=== PATIENT | male | born 1960 | race Caucasian/White ===

== ENCOUNTER 2017-12-29 09:56 | Emergency (ER) | payer MEDICAID ==
[2017-12-29] MEDS ORDERED: SODIUM CHLORIDE 0.9% (FLUSH) 10 ML SYG IV PRN (10:06)
[2017-12-29] MEDS ORDERED: IPRATROPIUM/ALBUTEROL 3 ML VIAL INH ONE (10:06)
[2017-12-29] MEDS ORDERED: MAGNESIUM SULFATE PREMIX 2GM 2 GM in PREMIX BAG 1 BAG IVPB ONE (10:07)
[2017-12-29] MEDS ORDERED: methylPREDNISolone SODIUM SUC 125 MG/2 ML VIAL IV ONE (10:07)
[2017-12-29] MEDS ORDERED: IPRATROPIUM/ALBUTEROL 3 ML VIAL NEB ONE ×2 (10:08→10:41)
--- NOTE | 2017-12-29 10:10 | ED.PDOC ---
History of Present Illness - General Chief Complaint: Respiratory Problem Stated Complaint: SOB, cough Time Seen by Provider: 12/29/17 10:04 Source: patient Exam Limitations: no limitations - History of Present Illness Initial Comments: PT REPORTS 2 WEEK HISTORY OF SOB SECONDARY TO ASTHMA AND COPD. PT REPORTS BEING DISCHARGED FROM THE HOSPITAL YESTERDAY. PT STATES HE HAS DONE APPROXIMATELY 15 NEB TREATMENTS AT HOME SINCE BEING DISCHARGED AND CONTINUES TO BE SHORT OF BREATH. Timing/Duration: getting worse Severity: severe Possible Cause: chronic episodes Improving Factors: immobilization Worsening Factors: movement Associated Symptoms: cough, wheezing Allergies/Adverse Reactions: Allergies Penicillins Allergy (Verified 12/29/17 10:17) Home Medications: Ambulatory Orders Ipratropium/Albuterol [Duoneb] 3 ml NEB Q6H PRN 12/29/17 Metoprolol Succinate [Metoprolol Succinate ER] 25 mg PO DAILY 12/29/17 Review of Systems - Review of Systems Constitutional: Denies: chills, fever EENTM: Denies: nose congestion, throat pain Respiratory: States: cough, short of breath Cardiology: Denies: chest pain, palpitations Gastrointestinal/Abdominal: Denies: diarrhea, nausea, vomiting Genitourinary: Denies: dysuria, frequency Musculoskeletal: Denies: joint pain, joint swelling Skin: Denies: dryness, lesions Neurological: Denies: headache, paresthesia Endocrine: States: no symptoms reported Hematologic/Lymphatic: States: no symptoms reported Family Medical History - Family History Father Family History: Unknown Living Status: Unknown Hx Family;Other: Does not know his father. Sister has asthma Physical Exam - Physical Exam General Appearance: Alert, Obvious distress, Well Groomed, Well Hydrated Eyes, Ears, Nose, Throat Exam: normal ENT inspection Neck: full range of motion, supple, normal inspection Respiratory: respiratory distress, accessory muscle use, wheezing Cardiovascular/Chest: no edema, no murmur, tachycardia Gastrointestinal/Abdominal: non tender, soft Neurologic: alert, normal mood/affect, oriented x 3 Skin Exam: normal color, warm/dry Lymphatic: no adenopathy Progress - Progress Progress: 12/29/17 11:51 PT APPEARS TO BE RESTING MORE COMFORTABLY AFTER DUONEB X 3, IV MAGNESIUM, AND IV SOLU MEDROL. IMPROVED AIR MOVEMENT, LESS TACHYPNEIC, SIGNIFICANT IMPROVEMENT IN WHEEZING. ONLY A FAINT EXPIRATORY WHEEZE AUSCULTATED. SPO2 95% ON RA. PT REFUSING TO KEEP O2 ON. 12/29/17 13:45 PT CONTINUES TO REST COMFORTABLY, HR NOW 126 WITH SBP OF 107 AFTER 1L NS. LUNGS CTA ON EXAM. LABS HEMOLYZED. PT REFUSES FURTHER ATTEMPTS TO DRAW BLOOD. 12/29/17 14:55 PT HAD AN EPISODE OF SYNCOPE AFTER COUGHING VIGOROUSLY, BP FOUND TO BE 81 SYSTOLIC AFTER EPISODE. ADDITIONAL FLUIDS ORDERED. PT REPORTS HE HAS BEEN HAVING FREQUENT EPISODES LIKE THIS WHILE AT HOME. EKG REPEATED. PT AGREES TO LET US ATTEMPT FURTHER IV ACCESS AND BLOOD DRAW. PT REQUESTING ADDITIONAL NEB TREATMENT. PT HAS WHEEZE ON EXAM. CONTINUOUS NEB ORDERED. 12/29/17 15:33 CASE FURTHER DISCUSSED WITH NANCY LEDBETTER NP. PROVIDED UPDATE ON RECENT SYNCOPAL EPISODE AND NEED FOR ADDITIONAL NEB TREATMENTS. I QUESTIONED WHY PT WAS STILL IN THE ED. FLOOR NURSING STAFF DOES NOT FEEL COMFORTABLE KEEPING PT AT THIS FACILITY, THEREFORE ARRANGEMENTS WILL BE MADE FOR TRANSFER. PT TOLERATING CONTINUOUS NEB AND BP 122/90 IMPROVED WITH FLUIDS. - Results/Orders Results/Orders: Laboratory Tests 12/29/17 12/29/17 12/29/17 10:25 11:00 11:00 WBC Cancelled RBC Cancelled Hgb Cancelled Hct Cancelled MCV Cancelled MCH Cancelled MCHC Cancelled RDW Cancelled Plt Count Cancelled MPV Cancelled Absolute Neuts (auto) Cancelled Absolute Lymphs (auto) Cancelled Absolute Monos (auto) Cancelled Absolute Eos (auto) Cancelled Absolute Basos (auto) Cancelled Neutrophils % Cancelled Lymphocytes % Cancelled Monocytes % Cancelled Eosinophils % Cancelled Basophils % Cancelled Differential Comment Cancelled RBC Morphology Cancelled D-Dimer, Quantitative Cancelled pCO2 41 pO2 40 L* HCO3 24.9 ABG pH 7.400 ABG O2 Saturation 80.5 L ABG Base Excess 0.6 ABG Deoxyhemoglobin 19.1 H Oxyhemoglobin % 78.8 L Carboxyhemoglobin % 1.8 H Methemoglobin % Sat 0.3 Calc Total Hemoglobin 15.0 Sodium Potassium Chloride Carbon Dioxide Anion Gap BUN Creatinine BUN/Creatinine Ratio Random Glucose Serum Osmolality Calcium Total Bilirubin AST ALT Alkaline Phosphatase B-Natriuretic Peptide Serum Total Protein Albumin Globulin Albumin/Globulin Ratio 12/29/17 11:00 WBC RBC Hgb Hct MCV MCH MCHC RDW Plt Count MPV Absolute Neuts (auto) Absolute Lymphs (auto) Absolute Monos (auto) Absolute Eos (auto) Absolute Basos (auto) Neutrophils % Lymphocytes % Monocytes % Eosinophils % Basophils % Differential Comment RBC Morphology D-Dimer, Quantitative pCO2 pO2 HCO3 ABG pH ABG O2 Saturation ABG Base Excess ABG Deoxyhemoglobin Oxyhemoglobin % Carboxyhemoglobin % Methemoglobin % Sat Calc Total Hemoglobin Sodium Cancelled Potassium Cancelled Chloride Cancelled Carbon Dioxide Cancelled Anion Gap Cancelled BUN Cancelled Creatinine Cancelled BUN/Creatinine Ratio Cancelled Random Glucose Cancelled Serum Osmolality Cancelled Calcium Cancelled Total Bilirubin Cancelled AST Cancelled ALT Cancelled Alkaline Phosphatase Cancelled B-Natriuretic Peptide Cancelled Serum Total Protein Cancelled Albumin Cancelled Globulin Cancelled Albumin/Globulin Ratio Cancelled - EKG/XRAY/CT EKG: Tachy - 140 BPM, LIKELY AN ACCELERATED JUNCTIONAL RHYTHM, NL AXIS, no ST T wave changes, Unchanged from - 12/28/17 - Additional EKG/XRAY/Consults EKG #2: Tachy - ACCELERATED JUNCTIONAL AT 130BPM, NO ACUTE ST-T CHANGES COMPARED TO PREVIOUS. Departure - Departure Clinical Impression: COPD exacerbation, Hypoxemia, Cough syncope, Junctional tachycardia Time of Disposition: 15:38 Disposition: Transfer to Hospital Condition: Fair Departure Forms: ED Discharge - Pt. Copy, Patient Portal Self Enrollment Home Medications: Ambulatory Orders Ipratropium/Albuterol [Duoneb] 3 ml NEB Q6H PRN 12/29/17 Metoprolol Succinate [Metoprolol Succinate ER] 25 mg PO DAILY 12/29/17 Critical Care Note - Critical Care Note Total Time (mins): 55 Comments: CRITICAL EVENT: ACUTE COPD EXACERBATION, HYPOXEMIA, COUGH SYNCOPE, TACHYCARDIA, HYPOTENSION CRITICAL FINDINGS: PO2: 40, TACHYCARDIA 130-140, SBP IN THE 80S. ACUTE RESPIRATORY DISTRESS ON EXAM. CRITICAL ACTIONS: DUONEB X 3, CONTINUOUS 15MG ALBUTEROL NEB, IV SOLU MEDROL, IV MAGNESIUM SULFATE, IV FLUID, CONSULTATION FOR ADMISSION, CONSULTATION FOR TRANSFER, FREQUENT REASSESSMENTS. Decision To Admit - Decistion To Admit Decision to Admit Reason: Admit from ER Decision to Admit Date: 12/29/17 Decision to Admit Time: 11:56 - CASE DISCUSSED WITH NANCY LEDBETTER NP WHO AGREES TO ADMIT Transfer to Outside Facility - Transfer Information Accepting Provider:: DR. GARCIA Accepting Facility: [facility] Reason for Transfer: specialized care not available - PULMONOLOGY
--- NOTE | 2017-12-29 11:29 | RAD ---
EXAM DESCRIPTION: Chest,2 Views CLINICAL HISTORY: SOB, cough COMPARISON: 2 view chest x-ray 11/05/2017. TECHNIQUE: PA, lateral views. FINDINGS: Lungs: No acute infiltrate. Improved lung expansion compared to the prior study Chronic mild elevation of the left hemidiaphragm. Pleural spaces: No effusion or pneumothorax bilaterally. Heart: Normal size. Pulmonary Vascularity: Not increased. Mediastinum: Not widened. Aorta: Unremarkable. Bony Thorax/Spine: No acute bony thoracic abnormalities. Minimal disc space narrowing. IMPRESSION: No radiographic evidence of acute cardiopulmonary disease. Electronically signed by: Neil Astorga MD 12/29/2017 11:28 AM [facility]
[2017-12-29] MEDS ORDERED: MAGNESIUM SULFATE PREMIX 2GM 50 ML IVPB ONE (11:30)
[2017-12-29] MEDS: METOPROLOL TARTRATE INJ 5 MG/5 ML VIAL IV ONE ×2 (12:27→16:14)
[2017-12-29] MEDS ORDERED: SODIUM CHLORIDE 0.9% 1000ML 1,000 ML ONE (12:30)
[2017-12-29] MEDS ORDERED: SODIUM CHLORIDE 0.9% 1000ML 1,000 ML IVS ONE (12:31)
[2017-12-29] MEDS ORDERED: SODIUM CHL 0.9% 50ML VIAL 3 ML, ALBUTEROL SULFATE NEBS 15 MG NEB ONE ×2 (15:03)
[2017-12-29] MEDS ORDERED: ALBUTEROL SULFATE 2.5 MG/3 ML VIAL NEB ONE ×2 (15:05→15:40)
[2017-12-29] MEDS ORDERED: SODIUM CHLORIDE 0.9% 50 ML VIAL ONE (15:05)
[2017-12-29] MEDS ORDERED: ALUM & MAG HYDROX-SIMETHICONE 30 ML, LIDOCAINE VISCOUS 2% 15 ML PO ONE ×2 (16:01)
[2017-12-29] MEDS ORDERED: ALUM & MAG HYDROX-SIMETHICONE 30 ML UD ONE (16:02)
[2017-12-29] MEDS ORDERED: LIDOCAINE HCL 2% (MOUTH-THROAT) 15 ML UD ONE (16:02)
[2017-12-29 17:07] VITALS: BP 138/91; TEMP 97.5; O2SAT 100
== END 2017-12-29 17:00 | disposition short-term general hospital (02) ==
LOC: ER 09:56
DX: J44.1 Chronic obstructive pulmonary disease with (acute) exacerbation (principal); R09.02 Hypoxemia; I47.1 Supraventricular tachycardia; R55 Syncope and collapse; Z79.899 Other long term (current) drug therapy; Z88.0 Allergy status to penicillin
CPT/HCPCS: 36600; 71046; 80053; 82550; 82553; 82803; 82805; 83605; 83735; 84484; 85610; 85730; 93005; 94640; 94644; A4216; J2930; J3475; J7030; J7611; J7620